=== PATIENT | female | born 1990 | race African-American/Black ===

== ENCOUNTER 2016-06-03 14:19 | Emergency (ER) | payer OTHER ==
[2016-06-03] MEDS ORDERED: IBUPROFEN 800 MG TABLET PO ONE (14:26)
--- NOTE | 2016-06-03 14:27 | ER Document Report ---
ED Medical Screen (RME) - General Stated Complaint: FALL AT WORK;HEAD INJURY Mode of Arrival: Medic Information source: Patient, Emergency Med Personnel Notes: Patient presents to emergency department with complaints of headache post falling at work in the bathroom. Patient reports she slipped and fell hitting the back of her head. Does not did not get dizzy reports she just slipped, did not notice water on the floor. Pt does not take any anticoagulants. Denies nausea/vomiting. I have greeted and performed a rapid initial assessment of this patient. A comprehensive ED assessment and evaluation of the patient, analysis of test results and completion of the medical decision making process will be conducted by additional ED providers. TRAVEL OUTSIDE OF THE [place] IN LAST 30 DAYS: No - Related Data Allergies/Adverse Reactions: No Known Allergies Allergy (Verified 06/03/16 14:24) Past Medical History GI Medical History: Reports: Hx Gastroesophageal Reflux Disease - Immunizations Hx Diphtheria, Pertussis, Tetanus Vaccination: Yes
--- NOTE | 2016-06-03 15:31 | ER Document Report ---
ED Fall - General Chief Complaint: Fall Stated Complaint: FALL AT WORK;HEAD INJURY Time seen by provider: 15:29 Mode of Arrival: Medic Information source: Patient, Emergency Med Personnel Notes: This is a 26-year-old female with a history of hypertension, PVCs and GERD. She was at work today at the [employer] when she slipped on the floor in the bathroom and hit the back of her head. There was no loss of consciousness. The fall occurred approximately 1:45 PM. The patient does complain of nauseous this, headache and left elbow pain. TRAVEL OUTSIDE OF THE [place] IN LAST 30 DAYS: No - HPI Occurred: Just prior to arrival Where: Work Context: Slipped Associated symptoms: Dazed/confused Location of injury/pain: Elbow, Head Quality of pain: Dull Severity: Moderate Pain Level: 2 Prehospital interventions: No: C-collar, Backboard, SEKOU, IV, IO, BVM, Rafael airway, Nasal airway, Oral airway, Intubation, Needle decompression, Splints, Wound care, Analgesia, Cardiac medications, CPR, Defibrillation, Other - Related data Allergies/Adverse Reactions: No Known Allergies Allergy (Verified 06/03/16 14:24) Past Medical History - General Information source: Patient, Emergency Med Personnel - Social History Smoking Status: Never Smoker Cigarette use (# per day): No Chew tobacco use (# tins/day): No Frequency of alcohol use: None Drug Abuse: None Lives with: Family Family History: DM, Hypertension, Malignancy, Other - chf Patient has suicidal ideation: No Patient has homicidal ideation: No Renal/ Medical History: Denies: Hx Peritoneal Dialysis GI Medical History: Reports: Hx Gastroesophageal Reflux Disease Surgical Hx: Negative - Immunizations Hx Diphtheria, Pertussis, Tetanus Vaccination: Yes Review of Systems - Review of Systems Constitutional: No symptoms reported EENT: No symptoms reported Cardiovascular: No symptoms reported Respiratory: No symptoms reported Gastrointestinal: No symptoms reported Genitourinary: No symptoms reported Female Genitourinary: No symptoms reported Musculoskeletal: See HPI Skin: No symptoms reported Hematologic/Lymphatic: See HPI Physical Exam - Vital signs Vitals: Temp Pulse Resp BP Pulse Ox 98.1 F 86 18 140/64 H 100 06/03/16 14:26 06/03/16 14:26 06/03/16 14:26 06/03/16 14:26 06/03/16 14:26 Notes: Physical exam: GENERAL: 26-year-old female, alert and oriented 3. HEAD: Atraumatic, normocephalic. EYES: Pupils equal round and reactive to light, extraocular movements intact, sclera anicteric, conjunctiva are normal. ENT: TMs normal, nares patent, oropharynx clear without exudates. Moist mucous membranes. NECK: Normal range of motion, supple without lymphadenopathy or JVD. LUNGS: Breath sounds clear to auscultation bilaterally and equal. No wheezes rales or rhonchi. HEART: Regular rate and rhythm without murmurs, rubs or gallops. ABDOMEN: Soft, normoactive bowel sounds. No tenderness to palpation. No guarding, no rebound. No masses appreciated. EXTREMITIES: Normal range of motion, no pitting or edema. She does have left elbow pain with range of motion and olecranon tendinitis to palpation. NEUROLOGICAL: Cranial nerves II through XII grossly intact. Normal speech, normal gait. PSYCH: Normal mood, normal affect. SKIN: Warm, Dry, normal turgor, no rashes or lesions noted. Course - Vital Signs Vital signs: Temp Pulse Resp BP Pulse Ox 98.6 F 92 20 145/77 H 100 06/03/16 19:02 06/03/16 19:02 06/03/16 19:02 06/03/16 19:02 06/03/16 19:02 - Diagnostic Test Radiology reviewed: Image reviewed, Reports reviewed - CT of the head shows no acute bleed. X-rays of the elbow show no acute fracture. Discharge - Discharge Clinical Impression: concussion, left elbow contusion, status post fall Condition: Stable Disposition: HOME, SELF-CARE Instructions: Concussion ([facility]), Contusion ([facility]) Additional Instructions: Recommendations: Rest, drink plenty of fluids, take Zofran for nausea. Take ibuprofen for pain. See the concussion have instruction sheet. Return to work on Sunday. Follow-up with your primary care doctor this week. Return to the emergency room for worsening headache, persistent vomiting, not really any concerns he getting worse. Referrals: BENNIE MATUTE MD [Primary Care Provider] - Follow up in 3-5 days
[2016-06-03] MEDS ORDERED: ONDANSETRON ODT 4 MG TAB (6 TAB/DSPK) PO PRN (18:06)
[2016-06-03 19:03] VITALS: BP 145/77
== END 2016-06-03 19:01 | disposition home or self-care (01) ==
LOC: ER 14:19
DX: S06.0X9A Concussion with loss of consciousness of unspecified duration, initial encounter (principal); S50.02XA Contusion of left elbow, initial encounter; S09.90XA Unspecified injury of head, initial encounter; W19.XXXA Unspecified fall, initial encounter
CPT/HCPCS: 70450; 99284

== ENCOUNTER 2018-09-19 14:46 | Emergency (ER) | payer OTHER ==
[2018-09-19] MEDS ORDERED: ASPIRIN 81 MG TABLET, CHEWABLE PO ONE (15:37)
--- NOTE | 2018-09-19 15:37 | ER Document Report ---
Addendum entered and electronically signed by KATHY SALEH NP 09/19/18 18:24: Discharge - Discharge Clinical Impression: Chest pain Qualifiers: Chest pain type: unspecified Qualified Code(s): R07.9 - Chest pain, unspecified Disposition: AGAINST MEDICAL ADVICE Instructions: Family Physicians / Practices Additional Instructions: You have elected to leave AGAINST MEDICAL ADVICE with your chest pain. You have been explained the risk of leaving with undiagnosed chest pain that includes worsening chest pain, cardiac problems, all the way up to . You have verbalized understanding of these risk. Your cardiac enzymes so far are negative but normally a second set is done. You will need to follow-up with her primary doctor as soon as possible. FOLLOW-UP CARE: If you have been referred to a physician for follow-up care, call the physicians office for an appointment as you were instructed or within the next two days. If you experience worsening or a significant change in your symptoms, notify the physician immediately or return to the Emergency Department at any time for re-evaluation. Forms: Elevated Blood Pressure Original Note: ED Medical Screen (RME) - General Chief Complaint: Chest Pain Stated Complaint: CHEST TIGHTNESS Time Seen by Provider: 09/19/18 15:36 Mode of Arrival: Ambulatory Information source: Patient Notes: 28-year-old female presented to ED for complaint of chest pain with left arm numbness and tingling. She states she was also short of breath. She had a similar incident a couple years ago. She told was told at that time that she was dehydrated. She states she is been drinking plenty of fluids at this time. Vital signs are stable. Patient is alert oriented respirations regular and unlabored speaking in full sentences walks with a even steady gait. She states she has not had any aspirin today. I have informed her we will get a blood urine chest x-ray and give her a dose of aspirin while she is waiting to be seen by provider. I have greeted and performed a rapid initial assessment of this patient. A comprehensive ED assessment and evaluation of the patient, analysis of test results and completion of medical decision making process will be conducted by an additional ED providers. Dictation of this chart was performed using voice recognition software; therefore, there may be some unintended grammatical errors. TRAVEL OUTSIDE OF THE [place] IN LAST 30 DAYS: No - Related Data Allergies/Adverse Reactions: No Known Allergies Allergy (Verified 09/19/18 14:48) Past Medical History Neurological Medical History: Reports: Hx Migraine Renal/ Medical History: Denies: Hx Peritoneal Dialysis GI Medical History: Reports: Hx Gastroesophageal Reflux Disease - Immunizations Hx Diphtheria, Pertussis, Tetanus Vaccination: Yes Physical Exam - Vital signs Vitals: Temp Pulse Resp BP Pulse Ox 99.0 F 89 16 147/75 H 98 09/19/18 15:02 09/19/18 15:02 09/19/18 15:02 09/19/18 15:02 09/19/18 15:02 Course - Vital Signs Vital signs: Temp Pulse Resp BP Pulse Ox 99.0 F 89 16 147/75 H 98 09/19/18 15:02 09/19/18 15:02 09/19/18 15:02 09/19/18 15:02 09/19/18 15:02
[2018-09-19 16:16] LABS: ABSOLUTE BASOPHILS # (AUTO) 0.1 10^3/uL (0.0-0.2); ABSOLUTE EOSINOPHILS # (AUTO) 0.1 10^3/uL (0.0-0.6); ABSOLUTE LYMPHOCYTES (AUTO) 2.2 10^3/uL (0.5-4.7); ABSOLUTE MONOCYTES (AUTO) 0.4 10^3/uL (0.1-1.4); ABSOLUTE NEUT (AUTO) 4.7 10^3/uL (1.7-8.2); EOSINOPHILS % (AUTO) 1.3 % (0-6); HEMATOCRIT 37.9 % (36.0-47.0); HEMOGLOBIN 12.2 g/dL (12.0-15.5); LYMPHOCYTES % (AUTO) 29.4 % (13-45); MEAN CORPUSCULAR HGB CONC 32.1 g/dL (32.0-36.0); MEAN CORPUSCULAR VOLUME 72 fl (80-97); MONOCYTES % (AUTO) 4.9 % (3-13); PLATELET COUNT 492 10^3/uL (150-450); RED BLOOD COUNT 5.28 10^6/uL (3.72-5.28); RED CELL DISTRIBUTION WIDTH 15.7 % (11.5-14.0); SEGMENTED NEUTROPHILS % (AUTO) 63.4 % (42-78); TOTAL CELLS COUNTED % (AUTO) 100 %; WHITE BLOOD COUNT 7.4 10^3/uL (4.0-10.5)
[2018-09-19 16:28] LABS: PROTHROMBIN TIME 14.3 SEC (11.4-15.4)
[2018-09-19 16:30] LABS: ALANINE AMINOTRANSFERASE 32 U/L (9-52); ALBUMIN 4.4 g/dL (3.5-5.0); ALKALINE PHOSPHATASE 57 U/L (38-126); ANION GAP 9 (5-19); ASPARTATE AMINO TRANSFERASE 20 U/L (14-36); BILIRUBIN,DIRECT 0.2 mg/dL (0.0-0.4); BILIRUBIN,TOTAL 0.5 mg/dL (0.2-1.3); BLOOD UREA NITROGEN 9 mg/dL (7-20); CALCIUM 9.9 mg/dL (8.4-10.2); CARBON DIOXIDE 27 mmol/L (22-30); CHLORIDE 103 mmol/L (98-107); CREATINE KINASE 75 U/L (30-135); GLUCOSE 87 mg/dL (75-110); POTASSIUM 3.6 mmol/L (3.6-5.0); SODIUM 138.5 mmol/L (137-145); TOTAL PROTEIN 7.3 g/dL (6.3-8.2)
--- NOTE | 2018-09-19 16:30 | RADIOLOGY REPORT (SQ) ---
EXAM DESCRIPTION: CHEST SINGLE VIEW COMPLETED DATE/TIME: 09/19/2018 4:16 pm REASON FOR STUDY: Chest Pain COMPARISON: AP chest 07/16/2015 EXAM PARAMETERS: NUMBER OF VIEWS: One view. TECHNIQUE: Single frontal radiographic view of the chest acquired. RADIATION DOSE: NA LIMITATIONS: None. FINDINGS: LUNGS AND PLEURA: No opacities, masses or pneumothorax. No pleural effusion. MEDIASTINUM AND HILAR STRUCTURES: No masses. Contour normal. HEART AND VASCULAR STRUCTURES: Mild cardiomegaly BONES: No acute findings. HARDWARE: None in the chest. OTHER: No other significant finding. IMPRESSION: NO ACUTE RADIOGRAPHIC FINDING IN THE CHEST. TECHNICAL DOCUMENTATION: JOB ID: [id number] [employer]- All Rights Reserved Reading location - IP/workstation name: [email or web address]
[2018-09-19 16:40] LABS: CREATINE KINASE MB 0.25 ng/mL (<4.55)
[2018-09-19 16:42] LABS: TROPONIN I < 0.012 ng/mL
[2018-09-19 18:37] VITALS: BP 134/74
--- NOTE | 2018-09-19 23:04 | EKG REPORT ---
SEVERITY:- BORDERLINE ECG - SINUS ARRHYTHMIA, RATE 61-88 BORDERLINE T ABNORMALITIES, INFERIOR LEADS : Confirmed by: Costa Florence 19-Sep-2018 23:04:12
== END 2018-09-19 18:32 | disposition left against medical advice (07) ==
LOC: ER 14:46
DX: R07.89 Other chest pain (principal); R20.0 Anesthesia of skin; R20.2 Paresthesia of skin; R06.02 Shortness of breath
CPT/HCPCS: 36415; 71045; 80053; 82550; 82553; 84484; 84703; 85025; 85610; 93005; 93010; 99285